=== PATIENT | male | born 1940 | race Caucasian/White ===

== ENCOUNTER 2020-06-17 13:09 | Emergency (ER) | payer MEDICARE, SELFPAY ==
[2020-06-17] VITALS (12 sets, daily range): BP systolic 110–132; BP diastolic 55–61; PULSE 60–75; RESP 15–23; TEMP 36.4; O2SAT 98–100
--- NOTE | 2020-06-17 13:19 | DI.RAD.S_ITS ---
PROCEDURE: XR CHEST 1V INDICATIONS: chest pain TECHNIQUE: One view of the chest was acquired. COMPARISON: [facility], , CHEST 2 VIEW, 12/12/2006, 14:00. [facility], , CHEST 2 VIEW, 05/30/2011, 10:30. [facility], CR, CHEST 2 VIEW, 05/08/2016, 14:27. FINDINGS: Surgical changes and devices: A pacer device is seen. Lungs and pleura: On this semiupright portable chest examination, no large pneumothorax or large pleural effusions are seen. No focal infiltrates are seen. Mediastinum: Mediastinal contours appear normal. Heart size is normal. Bones and chest wall: Age-appropriate bony degenerative changes are seen. No suspicious bony lesions. Overlying soft tissues appear unremarkable. IMPRESSION: Portable chest within normal limits for age. Postoperative and degenerative changes are seen. Dictated by: Dejan Bond M.D. on 06/17/2020 at 12:38 Approved by: Dejan Bond M.D. on 06/17/2020 at 12:38
--- NOTE | 2020-06-17 13:23 | ED_ITS ---
HPI - General Adult General Chief complaint: Dizziness Stated complaint: pacemaker installed yesterday,faint/pale Time Seen by Provider: 06/17/20 13:14 Source: patient Mode of arrival: Ambulatory Limitations: no limitations History of Present Illness HPI narrative: Patient is an 80-year-old male. Just discharged from the hospital today after having a pacemaker implanted yesterday. He states that after he was discharged she was feeling well. As they were driving home he felt like that he needed to have a bowel movement. He stated that he fell constipated. They stopped at a gas station. He states that he tried to have a bowel movement and was straining but could not have a bowel movement. He states he started feel lightheaded afterwards. He got back into his car and they continue to drive home and he continued to feel worse and worse. They decided to stop here at the hospital. Patient was unable to get out of his car in the parking lot upon arrival. Nursing staff saw him in the parking lot and stated that he was very weak. They did feel that he was pale in color. He was in no respiratory distress. EMS had to be called to help him out of his car. During my evaluation while patient is lying flat he states he was feeling much better. He denied any chest pain or shortness of breath. He stated that he no longer had the urge to have a bowel movement. Related Data Home Medications Medication Instructions Recorded Confirmed atorvastatin [Lipitor] 10 mg PO HS #30 tab 05/08/16 carvedilol [Coreg] 0 PO BID #0 05/08/16 Allergies Allergy/AdvReac Type Severity Reaction Status Date / Time No Known Drug Allergies Allergy Verified 06/17/20 13:26 Review of Systems Constitutional Constitutional: Denies fever(s), Denies headache(s) and Reports weakness Eyes Eyes: Denies change in vision ENT Ears, Nose, Mouth, and Throat: Denies vertigo, Reports dizziness and Denies headache(s) Cardiovascular Cardiovascular: Denies chest pain, Denies syncope, Denies rapid heart rate and Denies dyspnea Respiratory Respiratory: Denies cough and Denies dyspnea Gastrointestinal Gastrointestinal: Denies abdominal pain, Reports constipation, Denies nausea and Denies vomiting Genitourinary Genitourinary: Denies dysuria Genitourinary: Denies dysuria Musculoskeletal Musculoskeletal: Denies arthralgias and Denies myalgias Integumentary/Breasts Skin/Breast: Denies rash Neurologic Neurologic: Denies confusion, Denies vertigo, Reports dizziness, Denies syncope, Denies headache(s) and Reports weakness Psychiatric Psychiatric: Denies confusion Hematologic/Lymphatic Hematologic/Lymphatic: Denies easy bleeding and Denies easy bruising Patient History 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) Malignant neoplasm of prostate (01/26/03) Persistent atrial fibrillation (11/19/15) Social History marital status: lives independently: Yes Exam Initial Vital Signs Initial Vital Signs: Vital Signs Pulse Rate 61 06/17/20 13:14 Respiratory Rate 17 06/17/20 13:14 Pulse Oximetry 99 06/17/20 13:14 Const General: cooperative, healthy appearing, comfortable and well developed Limitations: mental status not altered HENMT Head: normal to inspection and normocephalic Resp Effort & Inspection: normal respiratory effort Auscultation: clear to auscultation bilaterally Cardio Rate: regular rate Rhythm: regular rhythm Skin Lesions: no lesions Rashes: no rashes Neuro General: patient alert, patient awake and patient oriented x3 Cognition: normal cognition Speech: speech normal Extrem General: normal to inspection and capillary refill normal Psych Appearance: grossly normal and well kempt Scores GCS Leyla coma scale eye opening: Spontaneous Leyla coma scale verbal response: Orientated [place] coma scale motor response: Obey commands [place] coma scale total score: 15 Course Orders Ordered: ED Orders 06/17/20 13:19 XR chest 1V Stat EKG-12 Lead Stat 06/17/20 13:25 Complete Blood Count AUTO DIFF Stat Comprehensive Metabolic Panel Stat Lipase Stat Partial Thromboplastin Time Stat Prothrombin Time INR Stat Troponin & CK Cardiac Panel Stat Discontinued Medications Sodium Biphosphate/Sodium Phosphate (Fleets Enema) 1 each WV NOW ONE Stop: 06/17/20 14:53 Last Admin: 06/17/20 15:19 Dose: 1 each Documented by: CLINTON Vital Signs Vital signs: Vital Signs - 8 hr 06/17/20 13:14 06/17/20 13:19 06/17/20 13:30 Temperature 97.5 F L Pulse Rate 61 60 65 Respiratory Rate 17 16 18 Blood Pressure 113/58 L Pulse Oximetry 99 98 99 06/17/20 13:39 06/17/20 14:00 06/17/20 14:30 Temperature Pulse Rate 61 60 60 Respiratory Rate 17 20 18 Blood Pressure 116/56 L 121/57 L Pulse Oximetry 99 100 100 06/17/20 14:31 Temperature Pulse Rate 60 Respiratory Rate 19 Blood Pressure 124/59 L Pulse Oximetry 100 Medical Decision Making Lab Data Lab results reviewed: Yes I reviewed the patient's lab results. Result diagrams: 06/17/20 13:25 06/17/20 13:25 Labs: Lab Results 06/17/20 06/17/20 06/17/20 Range/Units 13:25 13:25 13:25 WBC 7.9 (4.5-11.0) X10^3/uL RBC 4.57 (4.5-5.9) X10^6/uL Hgb 13.1 L (13.5-17.5) g/dL Hct 39.2 L (41-53) % MCV 85.7 (80-100) fL MCH 28.8 (26-34) PG MCHC 33.5 (30-36) % RDW 14.6 (11.6-14.8) % Plt Count 146 L (150-400) X10^3/uL Neut % (Auto) 48.7 L (50-75) % Lymph % (Auto) 39.6 (25-40) % [place] % (Auto) 8.3 (3-14) % Eos % (Auto) 2.4 (2-4) % Baso % (Auto) 1.0 (0-2) % Neut # (Auto) 3900 (4525-0956) /uL Lymph # (Auto) 3100 (1581-3785) /uL [place] # (Auto) 700 (0-900) /uL Eos # (Auto) 200 (0-450) /uL Baso # (Auto) 100 (0-100) /uL PT 18.4 H (10.1-12.7) SECONDS INR 1.6 H (0.9-1.3) APTT 39 H (26.4-36.2) SECONDS Sodium 136 L (137-145) mmol/L Potassium 4.1 (3.4-5.1) mmol/L Chloride 104 (98-107) mmol/L Carbon Dioxide 32 (22-32) mmol/L BUN 22 H (9-20) mg/dL Creatinine 1.37 H (0.66-1.25) mg/dL Estimated GFR 50.0 L (>60) mL/min BUN/Creatinine Ratio 16.1 (6-22) Glucose 100 (80-110) mg/dL Calcium 9.1 (8.4-10.2) mg/dL Total Bilirubin 0.7 (0.2-1.3) mg/dL AST 34 (17-59) IU/L ALT 22 (<50) IU/L Alkaline Phosphatase 54 (38-126) U/L Total Creatine Kinase 96 (55-170) U/L CK-MB (CK-2) TNP CK-MB (CK-2) Rel Index TNP Troponin I < 0.012 (0.01-0.034) ng/mL Total Protein 6.2 L (6.3-8.2) g/dL Albumin 3.7 (3.5-5.0) g/dL Globulin 2.5 (1.7-4.1) g/dL Albumin/Globulin Ratio 1.5 (1.0-2.8) Lipase 107 (23-300) U/L ECG Data Attestation: I personally reviewed and interpreted this ECG as follows: Prior ECG tracings: not available for review Interpretation: Ventricular paced Rate 62 MDM Narrative Medical decision making narrative: Patient's symptoms improved/resolved while being here. His pacemaker was interrogated and there were no events over the past 24 hours since it was implanted. Patient was able to walk to the bathroom although he stated that he could not have a bowel movement. He was given an enema and was able to have a bowel movement and afterwards states that he feels much better. He had no further nausea or lightheadedness or weakness. I feel patient could be safely discharged home. He was given return precautions. He expressed understanding and agreement. Discharge Plan Departure Patient Disposition: Home Clinical Impression: Constipation, Dizziness Instructions: DI for Dizziness-Nonvertigo Activity Restrictions/Additional Instructions: Continue all of your medications as directed and follow all of the postprocedure instructions given to by the anatomy professor. Be sure to increase your fluid intake. Keep all of your scheduled medical appointments. Return to the emergency department for any new or worsening symptoms Prescriptions: No Action carvedilol [Coreg] 12.5 MG tablet 0 PO BID Qty: 0 RF: 0 atorvastatin [Lipitor] 10 MG tablet 10 mg PO HS Qty: 30 RF: 0
[2020-06-17 13:31] LABS: Add Manual Diff / Slide Review NO; Basophils Absolute Auto 100 /uL (0-100); Eosinophils Absolute Auto 200 /uL (0-450); Eosinophils Percent Auto 2.4 % (2-4); Hematocrit 39.2 % (41-53); Hemoglobin 13.1 g/dL (13.5-17.5); Lymphocytes Absolute Auto 3100 /uL (1100-4500); Lymphocytes Percent Auto 39.6 % (25-40); Mean Corpuscular HGB Conc 33.5 % (30-36); Mean Corpuscular Hemoglobin 28.8 PG (26-34); Mean Corpuscular Volume 85.7 fL (80-100); Monocytes Absolute Auto 700 /uL (0-900); Monocytes Percent Auto 8.3 % (3-14); Neutrophils Absolute Auto 3900 /uL (1500-7000); Neutrophils Percent Auto 48.7 % (50-75); Platelet Count 146 X10^3/uL (150-400); Red Blood Cell Count 4.57 X10^6/uL (4.5-5.9); Red Cell Distribution Width 14.6 % (11.6-14.8); White Blood Cell Count 7.9 X10^3/uL (4.5-11.0)
[2020-06-17 13:38] LABS: INR 1.6 (0.9-1.3); Prothrombin Time 18.4 SECONDS (10.1-12.7)
[2020-06-17 13:41] LABS: PTT Partial Thromboplastin Tim 39 SECONDS (26.4-36.2)
[2020-06-17 13:43] LABS: Alanine Aminotransferase 22 IU/L (<50); Albumin 3.7 g/dL (3.5-5.0); Albumin Globulin Ratio 1.5 (1.0-2.8); Alkaline Phosphatase 54 U/L (38-126); Aspartate Aminotransferase 34 IU/L (17-59); BUN Creatinine Ratio 16.1 (6-22); Bilirubin Total 0.7 mg/dL (0.2-1.3); Blood Urea Nitrogen 22 mg/dL (9-20); Calcium 9.1 mg/dL (8.4-10.2); Carbon Dioxide 32 mmol/L (22-32); Chloride 104 mmol/L (98-107); Creatine Kinase 96 U/L (55-170); Globulin 2.5 g/dL (1.7-4.1); Glucose 100 mg/dL (80-110); HEMOLYSIS 15 (0-50); Lipase 107 U/L (23-300); Potassium 4.1 mmol/L (3.4-5.1); Sodium 136 mmol/L (137-145); Total Protein 6.2 g/dL (6.3-8.2)
[2020-06-17 13:55] LABS: Troponin I < 0.012 ng/mL (0.01-0.034)
--- NOTE | 2020-06-17 14:49 | PC.NURSE ---
interrogated pacemaker without difficulty.
[2020-06-17] MEDS: FLEETS ENEMA 1 EACH PR (15:19)
== END 2020-06-17 17:02 | disposition home or self-care (01) ==
PROVIDERS: Emergency Provider Emergency Medicine; Family Provider Family Medicine
DX: K59.00 Constipation, unspecified (principal); R42 Dizziness and giddiness; R07.9 Chest pain, unspecified; Z95.0 Presence of cardiac pacemaker
CPT/HCPCS: 36415; 71045; 80053; 82550; 83690; 84484; 85025; 85610; 85730; 93005; 93010; 99283; 99284

== ENCOUNTER → 2021-07-07 10:29 | Outpatient (CLI) | payer MEDICARE, SELFPAY ==
[2021-07-07 19:18] LABS: Add Manual Diff / Slide Review NO; Basophils Absolute Auto 0 /uL (0-100); Basophils Percent Auto 0.3 % (0-2); Eosinophils Absolute Auto 100 /uL (0-450); Hematocrit 37.1 % (41-53); Hemoglobin 12.5 g/dL (13.5-17.5); Lymphocytes Absolute Auto 1400 /uL (1100-4500); Mean Corpuscular HGB Conc 33.8 % (30-36); Mean Corpuscular Volume 85.6 fL (80-100); Monocytes Absolute Auto 500 /uL (0-900); Monocytes Percent Auto 5.3 % (3-14); Neutrophils Absolute Auto 7700 /uL (1500-7000); Neutrophils Percent Auto 79.4 % (50-75); Platelet Count 188 X10^3/uL (150-400); Red Blood Cell Count 4.33 X10^6/uL (4.5-5.9); Red Cell Distribution Width 14.4 % (11.6-14.8); White Blood Cell Count 9.7 X10^3/uL (4.5-11.0)
[2021-07-07 19:43] LABS: Alanine Aminotransferase 12 IU/L (<50); Albumin 3.5 g/dL (3.5-5.0); Albumin Globulin Ratio 1.5 (1.0-2.8); Alkaline Phosphatase 54 U/L (38-126); Aspartate Aminotransferase 19 IU/L (17-59); BUN Creatinine Ratio 21.3 (6-22); Bilirubin Total 0.6 mg/dL (0.2-1.3); Blood Urea Nitrogen 29 mg/dL (9-20); Carbon Dioxide 31 mmol/L (22-32); Chloride 108 mmol/L (98-107); Cholesterol 199 mg/dL (140-199); Estimated Glomerular Filt Rate 50.3 mL/min (>60); Globulin 2.3 g/dL (1.7-4.1); Glucose 81 mg/dL (80-110); HDL Cholesterol 41 mg/dL (40-60); HEMOLYSIS < 15 (0-50); LDL Cholesterol Calculated 143 mg/dL (<100); Potassium 4.3 mmol/L (3.4-5.1); Sodium 140 mmol/L (137-145); Total Protein 5.8 g/dL (6.3-8.2); Triglycerides 75 mg/dL (35-150)
[2021-07-07 19:55] LABS: Free T4, Direct Thyroxine 1.84 ng/dL (0.78-2.19)
[2021-07-07 20:14] LABS: Thyroid Stimulating Hormone < 0.015 uIU/mL (0.47-4.68)
== END ==
PROVIDERS: Family Provider Family Medicine; PCP Family Medicine; Visit Provider Family Medicine
DX: I10 Essential (primary) hypertension (principal); N18.2 Chronic kidney disease, stage 2 (mild); E03.9 Hypothyroidism, unspecified; E78.00 Pure hypercholesterolemia, unspecified
CPT/HCPCS: 80053; 80061; 84439; 84443; 85025

== ENCOUNTER 2021-12-25 12:27 | Inpatient (IN) | payer MEDICARE, SELFPAY ==
[2021-12-25] VITALS (8 sets, daily range): BP systolic 112–184; BP diastolic 55–80; PULSE 64–93; RESP 18–26; TEMP 36.8–39.3; O2SAT 91–100; BMI 25.2
--- NOTE | 2021-12-25 12:35 | ED_ITS ---
HPI - General Adult General Chief complaint: Weakness Stated complaint: weakness Time Seen by Provider: 12/25/21 12:29 Source: patient Mode of arrival: EMS Limitations: no limitations History of Present Illness HPI narrative: 81-year-old male who is brought by air ambulance from [facility]. Patient states that this morning he got up to try to use the restroom. He was sitting on the toilet. He states he fell off the toilet. No loss of consciousness. He states he was just too weak to get up. It took him an hour to get back to his bed. He reports no injuries from the event. EMS was called. Upon their arrival they found him to be hypotensive in the lying position and also hypoglycemic with a blood sugar in the 60s. He was given sugar and repeat blood sugar shows 99. He is also having chills/rigors. Upon arrival patient states that he feels cold but otherwise feels okay. No chest pain. No shortness of breath. No headache. No vision changes. No tingling in his extremities. No abdominal pain. No nausea vomiting. No urinary symptoms. No rashes. Related Data Home Medications Medication Instructions Recorded Confirmed atorvastatin 10 mg tablet (Lipitor) 10 mg PO HS #30 tab 05/08/16 07/01/21 hydrocortisone 20 mg tablet 20 mg PO DAILY 11/23/20 07/01/21 lisinopril 10 mg tablet 10 mg PO BID 11/23/20 07/01/21 warfarin 5 mg PO DAILY 11/23/20 01/10/21 metoprolol PO 01/10/21 07/01/21 Previous Rx's Medication Instructions Recorded levothyroxine 112 mcg tablet 112 mcg PO DAILY #90 tab 11/14/21 Allergies Allergy/AdvReac Type Severity Reaction Status Date / Time No Known Drug Allergies Allergy Verified 12/25/21 12:33 Review of Systems Review of Systems ROS Unobtainable: All systems reviewed & are unremarkable except as noted in HPI and below 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 Cerumen impaction Chicken pox Chronic kidney disease Complete AV block COPD (chronic obstructive pulmonary disease) H/O benign neoplasm of pituitary gland HTN (hypertension) Hyperlipidemia Hypertrophic cardiomyopathy Hypopituitarism 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/15) Low testosterone Malignant neoplasm of prostate (01/26/03) Measles Persistent atrial fibrillation (11/19/15) Syncope Surgical History Pacemaker (~2020) Family History Father Hypertension Mother Cancer Social History marital status: lives independently: Yes Smoking Status: Former smoker (Quit 40 years ago) Smoking Status: Former smoker (Quit 40 years ago) Substance Use Type: does not use Exam Initial Vital Signs Initial Vital Signs: Vital Signs Temperature 99.2 F 12/25/21 12:33 Pulse Rate 64 12/25/21 12:33 Respiratory Rate 18 12/25/21 12:33 Blood Pressure 146/67 H 12/25/21 12:33 Pulse Oximetry 100 12/25/21 12:33 Const General: cooperative, comfortable and well developed HENMT Head: normal to inspection and normocephalic Chest Chest: No tenderness Resp Effort & Inspection: normal respiratory effort Auscultation: clear to auscultation bilaterally Cardio Rate: regular rate Rhythm: regular rhythm GI Inspection: normal to inspection Palpation: soft, No firm, No guarding and No tender Skin General: no rashes or lesions noted Lesions: no lesions Neuro General: patient alert, patient awake and moves all extremities Speech: speech normal Extrem General: capillary refill normal and No edema Psych Appearance: grossly normal and well kempt Course Orders Ordered: ED Orders 12/25/21 12:33 EKG-12 Lead Stat 12/25/21 12:44 COVID19 -Nasal RAPID/Pre-Proc Stat 12/25/21 12:50 Complete Blood Count AUTO DIFF Stat Comprehensive Metabolic Panel Stat Ethanol (ETOH) Stat Lactate (Lactic Acid) Stat Lipase Stat Magnesium Stat Partial Thromboplastin Time Stat Procalcitonin Stat Prothrombin Time INR Stat Thyroid Stimulating Hormone Stat Troponin & CK Cardiac Panel Stat 12/25/21 12:55 NT-proBNP (BNP-Adult 18+) Stat 12/25/21 13:03 XR chest 1V Stat Sodium Chloride (Normal Saline 0.9%) 1,000 mls @ 125 mls/hr IV CONT PHIL Last Admin: 12/25/21 13:46 Dose: Not Given Documented by: BEBO Vital Signs Vital signs: Vital Signs - 8 hr 12/25/21 12:33 Temperature 99.2 F Pulse Rate 64 Respiratory Rate 18 Blood Pressure 146/67 H Pulse Oximetry 100 Medical Decision Making Lab Data Lab results reviewed: Yes I reviewed the patient's lab results. Result diagrams: 12/25/21 12:50 12/25/21 12:50 Labs: Lab Results 12/25/21 12/25/21 12/25/21 Range/Units 12:44 12:50 12:50 WBC 6.6 (4.5-11.0) X10^3/uL RBC 4.21 L (4.5-5.9) X10^6/uL Hgb 12.5 L (13.5-17.5) g/dL Hct 36.2 L (41-53) % MCV 86.0 (80-100) fL MCH 29.7 (26-34) PG MCHC 34.5 (30-36) % RDW 14.1 (11.6-14.8) % Plt Count 122 L (150-400) X10^3/uL Neut % (Auto) 75.6 H (50-75) % Lymph % (Auto) 15.0 L (25-40) % [place] % (Auto) 6.9 (3-14) % Eos % (Auto) 1.3 L (2-4) % Baso % (Auto) 1.2 (0-2) % Neut # (Auto) 5000 (3574-3521) /uL Lymph # (Auto) 1000 L (5721-6618) /uL [place] # (Auto) 500 (0-900) /uL Eos # (Auto) 100 (0-450) /uL Baso # (Auto) 100 (0-100) /uL PT (10.1-12.7) SECONDS INR (0.9-1.3) APTT (26.4-36.2) SECONDS Sodium 139 (137-145) mmol/L Potassium 4.1 (3.4-5.1) mmol/L Chloride 103 (98-107) mmol/L Carbon Dioxide 29 (22-32) mmol/L BUN 24 H (9-20) mg/dL Creatinine 1.35 H (0.66-1.25) mg/dL Estimated GFR 53 L (>60) mL/min BUN/Creatinine Ratio 17.8 (6-22) Glucose 108 (80-110) mg/dL Lactate (0.7-2.1) mmol/L Calcium 8.3 L (8.4-10.2) mg/dL Magnesium (1.6-2.3) mg/dL Total Bilirubin 0.6 (0.2-1.3) mg/dL AST 22 (17-59) IU/L ALT 12 (<50) IU/L Alkaline Phosphatase 50 (38-126) U/L Total Creatine Kinase (55-170) U/L CK-MB (CK-2) CK-MB (CK-2) Rel Index Troponin I (0.01-0.034) ng/mL NT-Pro-B Natriuret Pep (<450) pg/mL Total Protein 6.2 L (6.3-8.2) g/dL Albumin 3.6 (3.5-5.0) g/dL Globulin 2.6 (1.7-4.1) g/dL Albumin/Globulin Ratio 1.4 (1.0-2.8) Lipase (23-300) U/L Procalcitonin (<0.5) ng/mL TSH (0.47-4.68) uIU/mL Ethyl Alcohol ( - 10) mg/dL SARS-CoV-2 (PCR) Positive H (Negative) 12/25/21 12/25/21 12/25/21 Range/Units 12:50 12:50 12:50 WBC (4.5-11.0) X10^3/uL RBC (4.5-5.9) X10^6/uL Hgb (13.5-17.5) g/dL Hct (41-53) % MCV (80-100) fL MCH (26-34) PG MCHC (30-36) % RDW (11.6-14.8) % Plt Count (150-400) X10^3/uL Neut % (Auto) (50-75) % Lymph % (Auto) (25-40) % [place] % (Auto) (3-14) % Eos % (Auto) (2-4) % Baso % (Auto) (0-2) % Neut # (Auto) (1945-8378) /uL Lymph # (Auto) (1585-9587) /uL [place] # (Auto) (0-900) /uL Eos # (Auto) (0-450) /uL Baso # (Auto) (0-100) /uL PT 17.4 H (10.1-12.7) SECONDS INR 1.5 H (0.9-1.3) APTT 35 (26.4-36.2) SECONDS Sodium (137-145) mmol/L Potassium (3.4-5.1) mmol/L Chloride (98-107) mmol/L Carbon Dioxide (22-32) mmol/L BUN (9-20) mg/dL Creatinine (0.66-1.25) mg/dL Estimated GFR (>60) mL/min BUN/Creatinine Ratio (6-22) Glucose (80-110) mg/dL Lactate 1.3 (0.7-2.1) mmol/L Calcium (8.4-10.2) mg/dL Magnesium 1.9 (1.6-2.3) mg/dL Total Bilirubin (0.2-1.3) mg/dL AST (17-59) IU/L ALT (<50) IU/L Alkaline Phosphatase (38-126) U/L Total Creatine Kinase 31 L (55-170) U/L CK-MB (CK-2) TNP CK-MB (CK-2) Rel Index TNP Troponin I < 0.012 (0.01-0.034) ng/mL NT-Pro-B Natriuret Pep (<450) pg/mL Total Protein (6.3-8.2) g/dL Albumin (3.5-5.0) g/dL Globulin (1.7-4.1) g/dL Albumin/Globulin Ratio (1.0-2.8) Lipase 135 (23-300) U/L Procalcitonin 0.11 (<0.5) ng/mL TSH (0.47-4.68) uIU/mL Ethyl Alcohol < 10 ( - 10) mg/dL SARS-CoV-2 (PCR) (Negative) 12/25/21 12/25/21 Range/Units 12:50 12:55 WBC (4.5-11.0) X10^3/uL RBC (4.5-5.9) X10^6/uL Hgb (13.5-17.5) g/dL Hct (41-53) % MCV (80-100) fL MCH (26-34) PG MCHC (30-36) % RDW (11.6-14.8) % Plt Count (150-400) X10^3/uL Neut % (Auto) (50-75) % Lymph % (Auto) (25-40) % [place] % (Auto) (3-14) % Eos % (Auto) (2-4) % Baso % (Auto) (0-2) % Neut # (Auto) (8259-0907) /uL Lymph # (Auto) (9525-2373) /uL [place] # (Auto) (0-900) /uL Eos # (Auto) (0-450) /uL Baso # (Auto) (0-100) /uL PT (10.1-12.7) SECONDS INR (0.9-1.3) APTT (26.4-36.2) SECONDS Sodium (137-145) mmol/L Potassium (3.4-5.1) mmol/L Chloride (98-107) mmol/L Carbon Dioxide (22-32) mmol/L BUN (9-20) mg/dL Creatinine (0.66-1.25) mg/dL Estimated GFR (>60) mL/min BUN/Creatinine Ratio (6-22) Glucose (80-110) mg/dL Lactate (0.7-2.1) mmol/L Calcium (8.4-10.2) mg/dL Magnesium (1.6-2.3) mg/dL Total Bilirubin (0.2-1.3) mg/dL AST (17-59) IU/L ALT (<50) IU/L Alkaline Phosphatase (38-126) U/L Total Creatine Kinase (55-170) U/L CK-MB (CK-2) CK-MB (CK-2) Rel Index Troponin I (0.01-0.034) ng/mL NT-Pro-B Natriuret Pep 2100 H (<450) pg/mL Total Protein (6.3-8.2) g/dL Albumin (3.5-5.0) g/dL Globulin (1.7-4.1) g/dL Albumin/Globulin Ratio (1.0-2.8) Lipase (23-300) U/L Procalcitonin (<0.5) ng/mL TSH 0.025 L (0.47-4.68) uIU/mL Ethyl Alcohol ( - 10) mg/dL SARS-CoV-2 (PCR) (Negative) Point of Care Testing Glucose POC 108 Point of care testing: Point of Care Testing Glucose POC 108 Imaging Data Chest x-ray: Radiologist's Impression: [address] [address] XRay Report Signed Patient: Satish Deal MR#: [id number] : 1940 Acct:[id number] Age/Sex: 81 / M Date of Service: 12/25/21 Loc: ED Accession Number: [id number] ?? Procedure: XR chest 1V Ordering Provider: Jorge Patricio D.O. PROCEDURE:? XR CHEST 1V ? INDICATIONS:? SOB ? TECHNIQUE:? One view of the chest was acquired.? ? COMPARISON:? [facility], CR, CHEST 2 VIEW, 05/08/2016, 14:27.? [facility], CR, XR CHEST 1V, 06/17/2020, 13:26. ? FINDINGS:? ? Surgical changes and devices:? Left chest wall cardiac device unchanged in appearance.? Overlying EKG wires. ? Lungs and pleura:? Lungs are clear.? No pleural effusions or pneumothorax.? ? Mediastinum:? Mediastinal contours appear normal.? Heart size is normal.? ? Bones and chest wall:? No suspicious bony lesions.? Overlying soft tissues appear unremarkable.? ? IMPRESSION:? ? No evidence of an acute cardiopulmonary abnormality. ? ? Dictated by: Ruddy Sabillon D.O. on 12/25/2021 at 12:22 ? ? Approved by: Ruddy Sabillon D.O. on 12/25/2021 at 12:23 ECG Data Attestation: I personally reviewed and interpreted this ECG as follows: Prior ECG tracings: available for review Interpretation: Atrially paced Rate of 63 Left axis deviation Nonspecific ST T wave changes MDM Narrative Medical decision making narrative: Patient's labs are reassuring along with his chest x-ray. No leukocytosis. COVID test positive. Patient not hypoxic when he is lying in bed however nursing staff stood the patient up to ambulate him. He became tachypneic. Hy poxic to the high 80s. Very weak. Could barely stand on his own. He was placed back in bed. His oxygen saturations improved. He is not requiring oxygen with lying in bed. Given his COVID status and his hypoxia with ambulation patient does require admission to the hospital for further evaluatio n. Discussed the case with Dr. Payne with Internal Medicine who will admit for further evaluation and treatment. Discharge Plan Departure Patient Disposition: Admitted as Observation Clinical Impression: COVID-19, Hypoxia, Weakness
--- NOTE | 2021-12-25 13:03 | DI.RAD.S_ITS ---
PROCEDURE: XR CHEST 1V INDICATIONS: SOB TECHNIQUE: One view of the chest was acquired. COMPARISON: [facility], [facility], CHEST 2 VIEW, 05/08/2016, 14:27. [facility], [place], XR CHEST 1V, 06/17/2020, 13:26. FINDINGS: Surgical changes and devices: Left chest wall cardiac device unchanged in appearance. Overlying EKG wires. Lungs and pleura: Lungs are clear. No pleural effusions or pneumothorax. Mediastinum: Mediastinal contours appear normal. Heart size is normal. Bones and chest wall: No suspicious bony lesions. Overlying soft tissues appear unremarkable. IMPRESSION: No evidence of an acute cardiopulmonary abnormality. Dictated by: Ruddy Sabillon D.O. on 12/25/2021 at 12:22 Approved by: Ruddy Sabillon D.O. on 12/25/2021 at 12:23
[2021-12-25 13:10] LABS: INR 1.5 (0.9-1.3); Prothrombin Time 17.4 SECONDS (10.1-12.7)
[2021-12-25 13:11] LABS: Add Manual Diff / Slide Review NO; Basophils Absolute Auto 100 /uL (0-100); Basophils Percent Auto 1.2 % (0-2); Eosinophils Absolute Auto 100 /uL (0-450); Eosinophils Percent Auto 1.3 % (2-4); Hematocrit 36.2 % (41-53); Hemoglobin 12.5 g/dL (13.5-17.5); Lymphocytes Absolute Auto 1000 /uL (1100-4500); Mean Corpuscular HGB Conc 34.5 % (30-36); Mean Corpuscular Hemoglobin 29.7 PG (26-34); Monocytes Absolute Auto 500 /uL (0-900); Monocytes Percent Auto 6.9 % (3-14); Neutrophils Absolute Auto 5000 /uL (1500-7000); Neutrophils Percent Auto 75.6 % (50-75); Platelet Count 122 X10^3/uL (150-400); Red Blood Cell Count 4.21 X10^6/uL (4.5-5.9); Red Cell Distribution Width 14.1 % (11.6-14.8); White Blood Cell Count 6.6 X10^3/uL (4.5-11.0)
[2021-12-25 13:13] LABS: PTT Partial Thromboplastin Tim 35 SECONDS (26.4-36.2)
[2021-12-25 13:15] LABS: Lactate (Lactic Acid) 1.3 mmol/L (0.7-2.1)
[2021-12-25 13:17] LABS: Alanine Aminotransferase 12 IU/L (<50); Albumin 3.6 g/dL (3.5-5.0); Albumin Globulin Ratio 1.4 (1.0-2.8); Alkaline Phosphatase 50 U/L (38-126); Aspartate Aminotransferase 22 IU/L (17-59); BUN Creatinine Ratio 17.8 (6-22); Bilirubin Total 0.6 mg/dL (0.2-1.3); Blood Urea Nitrogen 24 mg/dL (9-20); Calcium 8.3 mg/dL (8.4-10.2); Carbon Dioxide 29 mmol/L (22-32); Chloride 103 mmol/L (98-107); Creatine Kinase 31 U/L (55-170); Estimated Glomerular Filt Rate 53 mL/min (>60); Ethanol (ETOH) < 10 mg/dL; Globulin 2.6 g/dL (1.7-4.1); Glucose 108 mg/dL (80-110); HEMOLYSIS < 15 (0-50); Lipase 135 U/L (23-300); Magnesium 1.9 mg/dL (1.6-2.3); Potassium 4.1 mmol/L (3.4-5.1); Sodium 139 mmol/L (137-145); Total Protein 6.2 g/dL (6.3-8.2)
[2021-12-25 13:22] LABS: COVID19 -Nasal RAPID POSITIVE (Negative)
[2021-12-25 13:26] LABS: NT-proBNP (BNP-Adult 18+) 2100 pg/mL (<450)
[2021-12-25 13:29] LABS: Troponin I < 0.012 ng/mL (0.01-0.034)
[2021-12-25 13:34] LABS: Procalcitonin 0.11 ng/mL (<0.5)
[2021-12-25 14:02] LABS: Thyroid Stimulating Hormone 0.025 uIU/mL (0.47-4.68)
--- NOTE | 2021-12-25 14:21 | PC.NURSE ---
Attempted to do orthostatics on patient, was not able to stay standing for longer than 30 seconds, became hypoxic at 87% and tachypneic with respirations at 36 and stated that he'd become weak and short of breath. Notified provider.
[2021-12-25 16:13] LABS: Free T4, Direct Thyroxine 1.47 ng/dL (0.78-2.19)
--- NOTE | 2021-12-25 16:13 | PM.HP.1 ---
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 At the time I see patient he is having active rigors and has hard time giving me full history. He apparently became acutely weak while sitting on the toilet and fell to the floor. He denies passing out. He was too weak to get up but eventually got back to his bed. Upon EMS arrival they found him to be hypotensive in the lying position and also hypoglycemic with blood sugar in the 60s. He was given sugar and repeat blood sugar was 99. On ER arrival his blood pressure was 146/67, pulse 64, respirations 18 with O2 sat 100% on room air. However when they stood him up he became lightheaded with O2 sat dropping to 87% room air. Noted similar drop in O2 sat when he was being situated in bed up on the hospital floor. Subsequently spiked temp to 102.3 with active rigors once arrived to the floor. His COVID PCR was positive. BNP 2100. Creatinine 1.35 at baseline. Chest x-ray did not show infiltrate. EKG showed paced rhythm. Patient has hypopituitarism and on steroid and thyroid replacement. He appears to be on Xarelto for AFib anticoagulation. Patient is fully immunized including 2 boosters. 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 Cerumen impaction Chicken pox Chronic kidney disease Complete AV block COPD (chronic obstructive pulmonary disease) H/O benign neoplasm of pituitary gland HTN (hypertension) Hyperlipidemia Hypertrophic cardiomyopathy Hypopituitarism Hypothyroidism retirement current use of anticoagulant therapy (11/19/15) Low testosterone Malignant neoplasm of prostate (01/26/03) Measles Persistent atrial fibrillation (11/19/15) Syncope Surgical History Pacemaker (~2020) Family & Social History Family History Father Hypertension Mother Cancer Social History: lives independently Yes Safety & Behavioral: Feels Safe in Current Yes Environment Been Physically Hurt or No Threatened By a Person Tobacco & Substance use: Smoking Status Former smoker Substance Use Type does not use Meds Home Medications and Allergies Home Medications Medication Instructions Recorded Confirmed Type hydrocortisone 20 mg tablet 20 mg PO DAILY 11/23/20 07/01/21 History lisinopril 10 mg tablet 10 mg PO DAILY 11/23/20 07/01/21 History levothyroxine 112 mcg tablet 112 mcg PO DAILY #90 tab 11/14/21 Rx metoprolol succinate 25 mg 25 mg PO DAILY 12/25/21 History tablet,extended release 24 hr rivaroxaban 20 mg tablet (Xarelto) 20 mg PO DAILY 12/25/21 History Allergies Allergy/AdvReac Type Severity Reaction Status Date / Time No Known Drug Allergies Allergy Verified 12/25/21 12:33 Review of Systems Review of Systems Narrative: Complete ROS otherwise negative though limited by patient unable to provide full history. Exam Vital Signs (past 8 hours): - 12/25/21 12:33 12/25/21 16:03 Temperature 99.2 F 102.3 F H Pulse Rate 64 93 H Respiratory Rate 18 20 Blood Pressure 146/67 H 184/80 H Pulse Oximetry 100 91 Oxygen Delivery Method Room Air Oxygen Flow Rate 0 Narrative Exam Narrative: General: Well-developed well-nourished male who is acutely distressed having rigors HEENT: Nontraumatic, pupils equal Neck: No lymphadenopathy Lungs: Bilateral coarse breath sounds, no wheeze or crackles Heart: Regular paced rhythm without murmur Abdomen: Soft, no HSM Extremities: Warm and nonedematous Neurological: Oriented, weak but no localizing weakness Objective Labs Result Diagrams: 12/25/21 12:50 12/25/21 12:50 Labs: Laboratory Results - last 24 hr 12/25/21 12/25/21 12/25/21 12:44 12:50 12:50 WBC 6.6 RBC 4.21 L Hgb 12.5 L Hct 36.2 L MCV 86.0 MCH 29.7 MCHC 34.5 RDW 14.1 Plt Count 122 L Neut % (Auto) 75.6 H Lymph % (Auto) 15.0 L [place] % (Auto) 6.9 Eos % (Auto) 1.3 L Baso % (Auto) 1.2 Neut # (Auto) 5000 Lymph # (Auto) 1000 L [place] # (Auto) 500 Eos # (Auto) 100 Baso # (Auto) 100 PT INR APTT Sodium 139 Potassium 4.1 Chloride 103 Carbon Dioxide 29 BUN 24 H Creatinine 1.35 H Estimated GFR 53 L BUN/Creatinine Ratio 17.8 Glucose 108 Lactate Calcium 8.3 L Magnesium Total Bilirubin 0.6 AST 22 ALT 12 Alkaline Phosphatase 50 Total Creatine Kinase CK-MB (CK-2) CK-MB (CK-2) Rel Index Troponin I NT-Pro-B Natriuret Pep Total Protein 6.2 L Albumin 3.6 Globulin 2.6 Albumin/Globulin Ratio 1.4 Lipase Procalcitonin TSH Ethyl Alcohol SARS-CoV-2 (PCR) Positive H 12/25/21 12/25/21 12/25/21 12:50 12:50 12:50 WBC RBC Hgb Hct MCV MCH MCHC RDW Plt Count Neut % (Auto) Lymph % (Auto) [place] % (Auto) Eos % (Auto) Baso % (Auto) Neut # (Auto) Lymph # (Auto) [place] # (Auto) Eos # (Auto) Baso # (Auto) PT 17.4 H INR 1.5 H APTT 35 Sodium Potassium Chloride Carbon Dioxide BUN Creatinine Estimated GFR BUN/Creatinine Ratio Glucose Lactate 1.3 Calcium Magnesium 1.9 Total Bilirubin AST ALT Alkaline Phosphatase Total Creatine Kinase 31 L CK-MB (CK-2) TNP CK-MB (CK-2) Rel Index TNP Troponin I < 0.012 NT-Pro-B Natriuret Pep Total Protein Albumin Globulin Albumin/Globulin Ratio Lipase 135 Procalcitonin 0.11 TSH Ethyl Alcohol < 10 SARS-CoV-2 (PCR) 12/25/21 12/25/21 12:50 12:55 WBC RBC Hgb Hct MCV MCH MCHC RDW Plt Count Neut % (Auto) Lymph % (Auto) [place] % (Auto) Eos % (Auto) Baso % (Auto) Neut # (Auto) Lymph # (Auto) [place] # (Auto) Eos # (Auto) Baso # (Auto) PT INR APTT Sodium Potassium Chloride Carbon Dioxide BUN Creatinine Estimated GFR BUN/Creatinine Ratio Glucose Lactate Calcium Magnesium Total Bilirubin AST ALT Alkaline Phosphatase Total Creatine Kinase CK-MB (CK-2) CK-MB (CK-2) Rel Index Troponin I NT-Pro-B Natriuret Pep 2100 H Total Protein Albumin Globulin Albumin/Globulin Ratio Lipase Procalcitonin TSH 0.025 L Ethyl Alcohol SARS-CoV-2 (PCR) Assessment & Plan Assessment & Plan narrative: 1. Acute COVID-19 infection -presents with weakness, fever and rigors and O2 desaturations with exertion only, hypotensive prior to ER arrival, no infiltrate on chest x-ray -at this time need supportive therapy with IV fluids, stress dose steroids, but will start remdesivir/high-dose steroids if respiratory status deteriorates -continue NS 125 cc/hour -hydrocortisone 100 mg IV x1 then 50 mg IV q.6 hours -Tylenol as needed -check influenza PCR 2. Acute hypoxic respiratory failure -O2 sat 87% at home and dropped below 88% with minimal activity in hospital -provide supplemental O2 if hypoxic at rest 3. 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 Hypopituitarism -stress dose steroids as above -continue home dose of hydrocortisone 20 mg p.o. daily, levothyroxine 112 mcg daily -TSH suppressed but not reliable since patient has central hypothyroidism, his free T4 is normal indicating adequate replacement 5. Persistent atrial fibrillation -he is in paced rhythm -continue metoprolol ER 25 mg daily -continue Xarelto 20 mg daily although may need to adjust if renal function worsens as EGFR is right around 50 -telemetry 6. Hypertrophic cardiomyopathy history -BNP elevated but there is no evidence of acute CHF -continue lisinopril 10 mg q.d. and metoprolol succinate 25 mg q.d. as blood pressure allows 7. Chronic kidney disease -appears at baseline renal function -maintain IV fluid support until confirm patient taking adequate fluids by mouth DVT prophylaxis: On oral anticoagulant Code status: Full code Time Spent With Patient Critical Care time: I spent a total of [] minutes of critical care time on this patient's care today; this time is exclusive of procedural time.
[2021-12-25] MEDS: SODIUM CHLORIDE 0.9% 1,000 ML 125 ML IV (16:40)
[2021-12-25] MEDS: HYDROCORTISONE 100 MG/2 ML VIAL IV (16:40)
[2021-12-25] MEDS: ACETAMINOPHEN 325 MG TABLET 650 MG PO (16:41)
[2021-12-25] MEDS: DEXTROSE 5%-0.9% NS 1,000 ML 125 ML IV (17:30)
[2021-12-25 17:43] LABS: Influenza A - CEPHEID Flu A NEGATIVE (NEGATIVE); Influenza B - CEPHEID Flu B NEGATIVE (NEGATIVE)
--- NOTE | 2021-12-25 18:40 | PC.NURSE ---
Admit Note Pt arrived to room 230 at 1540, transferred to bed via slider board. Oriented to self and place, intermittently answers questions and follows commands. SpO2 94-97% on RA while at rest, desats to mid-80s with activity. RR in the 30s. Lungs coarse to upper airway, near-continual moist productive cough, sputum not visualized due to pt's inability to expectorate (swallows sputum). Temp 102.3 on arrival, Tylenol given and recheck 102.7 axillary. CBG 76, pt declined to drink or eat, stating no, explained rationale and pt did not respond. MD updated and IV fluids changed to include a sugar source. Incontinent of urine, brief placed. Arrived with glasses, necklace, 2 bracelets, shirt, pants, shoes. Updated , Jana, via phone and med list confirmed as pt could not confirm his meds. Also confirmed pt's wallet was at his home. Call light placed within reach, instructed on its use. Bed alarm is on.
[2021-12-25] MEDS: ATORVASTATIN 20 MG TABLET 10 MG PO (20:10)
--- NOTE | 2021-12-25 21:02 | PC.NURSE ---
Addendum entered by Vikash Ho R.N. 12/26/21 06:23: Patient had uneventful night, vital signs are stable and within acceptable limits, denies any pain/discomfort, no distress, maintained at room air with O2 sat >95%, changed brief twice, provided pericare. Patient attempted to defecate but unsuccessful. Safety precautions maintained. Original Note: Shift Note Received patient asleep, arousable, able to identify self and date of , denies any pain/discomfort this time, no signs of distress, at room air with O2 sat at 95%, with IV access on both upper extremities, ongoing fluids IV D5NS at 125mls/hr. Patient obeys to simple commands but forgetful. Lungs are coarse anteriorly and diminished breath sounds on bilateral bases. Soft and non tender abdomen, good bowel tones noted. Patient was incontinent, brief on, but urinal provided at the bedside. Safety precautions maintained. Call william within reach.
[2021-12-25] MEDS: HYDROCORTISONE 100 MG/2 ML VIAL 50 MG IV (23:31)
[2021-12-26] VITALS (9 sets, daily range): BP systolic 114–161; BP diastolic 55–72; PULSE 60–64; RESP 16–23; TEMP 36.2–37.3; O2SAT 97–100
[2021-12-26] MEDS: DEXTROSE 5%-0.9% NS 1,000 ML 125 ML IV (01:18)
[2021-12-26 05:34] LABS: Add Manual Diff / Slide Review NO; Basophils Absolute Auto 0 /uL (0-100); Basophils Percent Auto 0.1 % (0-2); Eosinophils Absolute Auto 0 /uL (0-450); Hematocrit 35.3 % (41-53); Hemoglobin 12.3 g/dL (13.5-17.5); Lymphocytes Absolute Auto 500 /uL (1100-4500); Lymphocytes Percent Auto 5.2 % (25-40); Mean Corpuscular HGB Conc 34.8 % (30-36); Mean Corpuscular Hemoglobin 29.5 PG (26-34); Mean Corpuscular Volume 84.8 fL (80-100); Monocytes Absolute Auto 300 /uL (0-900); Monocytes Percent Auto 2.9 % (3-14); Neutrophils Absolute Auto 9000 /uL (1500-7000); Neutrophils Percent Auto 91.8 % (50-75); Platelet Count 115 X10^3/uL (150-400); Red Blood Cell Count 4.16 X10^6/uL (4.5-5.9); Red Cell Distribution Width 14.4 % (11.6-14.8); White Blood Cell Count 9.8 X10^3/uL (4.5-11.0)
[2021-12-26 05:38] LABS: Alanine Aminotransferase 12 IU/L (<50); Albumin Globulin Ratio 1.3 (1.0-2.8); Alkaline Phosphatase 41 U/L (38-126); Aspartate Aminotransferase 21 IU/L (17-59); Bilirubin Total 0.4 mg/dL (0.2-1.3); Blood Urea Nitrogen 22 mg/dL (9-20); Calcium 7.9 mg/dL (8.4-10.2); Carbon Dioxide 27 mmol/L (22-32); Chloride 105 mmol/L (98-107); Estimated Glomerular Filt Rate > 60 mL/min (>60); Globulin 2.4 g/dL (1.7-4.1); Glucose 203 mg/dL (80-110); HEMOLYSIS < 15 (0-50); Potassium 4.6 mmol/L (3.4-5.1); Sodium 135 mmol/L (137-145); Total Protein 5.4 g/dL (6.3-8.2)
[2021-12-26] MEDS: HYDROCORTISONE 100 MG/2 ML VIAL 50 MG IV ×3 (05:38→20:38)
[2021-12-26] MEDS: LEVOTHYROXINE 112 MCG TABLET PO (06:10)
--- NOTE | 2021-12-26 09:30 | PM.PN.1 ---
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 Patient still with upper airway secretions pooling in his throat with weak cough. Has not mobilized out of bed yet this morning. Was hypoglycemic last night and glucose up to 200 this a.m.. Has been incontinent of urine. Exam Vital Signs (past 8 hours): - 12/26/21 04:00 Temperature 97.2 F L Pulse Rate 60 Respiratory Rate 22 Blood Pressure 114/55 L Pulse Oximetry 99 Oxygen Delivery Method Room Air Oxygen Flow Rate 0 Narrative Exam Narrative: General: Alert with weak muffled voice due to secretions Lungs: Clear Heart: Regular Extremities: No edema Neuro: Appears normally oriented Objective Labs Result Diagrams: 12/26/21 04:50 12/26/21 04:50 Labs: Laboratory Results - last 24 hr 12/25/21 12/25/21 12/25/21 12:44 12:50 12:50 WBC 6.6 RBC 4.21 L Hgb 12.5 L Hct 36.2 L MCV 86.0 MCH 29.7 MCHC 34.5 RDW 14.1 Plt Count 122 L Neut % (Auto) 75.6 H Lymph % (Auto) 15.0 L [place] % (Auto) 6.9 Eos % (Auto) 1.3 L Baso % (Auto) 1.2 Neut # (Auto) 5000 Lymph # (Auto) 1000 L [place] # (Auto) 500 Eos # (Auto) 100 Baso # (Auto) 100 PT INR APTT Sodium 139 Potassium 4.1 Chloride 103 Carbon Dioxide 29 BUN 24 H Creatinine 1.35 H Estimated GFR 53 L BUN/Creatinine Ratio 17.8 Glucose 108 Lactate Calcium 8.3 L Magnesium Total Bilirubin 0.6 AST 22 ALT 12 Alkaline Phosphatase 50 Total Creatine Kinase CK-MB (CK-2) CK-MB (CK-2) Rel Index Troponin I NT-Pro-B Natriuret Pep Total Protein 6.2 L Albumin 3.6 Globulin 2.6 Albumin/Globulin Ratio 1.4 Lipase Procalcitonin TSH Free T4 Nasal Screen MRSA (PCR) Ethyl Alcohol SARS-CoV-2 (PCR) Positive H Influenza A (RT-PCR) Influenza B (RT-PCR) 12/25/21 12/25/21 12/25/21 12:50 12:50 12:50 WBC RBC Hgb Hct MCV MCH MCHC RDW Plt Count Neut % (Auto) Lymph % (Auto) [place] % (Auto) Eos % (Auto) Baso % (Auto) Neut # (Auto) Lymph # (Auto) [place] # (Auto) Eos # (Auto) Baso # (Auto) PT 17.4 H INR 1.5 H APTT 35 Sodium Potassium Chloride Carbon Dioxide BUN Creatinine Estimated GFR BUN/Creatinine Ratio Glucose Lactate 1.3 Calcium Magnesium 1.9 Total Bilirubin AST ALT Alkaline Phosphatase Total Creatine Kinase 31 L CK-MB (CK-2) TNP CK-MB (CK-2) Rel Index TNP Troponin I < 0.012 NT-Pro-B Natriuret Pep Total Protein Albumin Globulin Albumin/Globulin Ratio Lipase 135 Procalcitonin 0.11 TSH Free T4 Nasal Screen MRSA (PCR) Ethyl Alcohol < 10 SARS-CoV-2 (PCR) Influenza A (RT-PCR) Influenza B (RT-PCR) 12/25/21 12/25/21 12/25/21 12:50 12:50 12:55 WBC RBC Hgb Hct MCV MCH MCHC RDW Plt Count Neut % (Auto) Lymph % (Auto) [place] % (Auto) Eos % (Auto) Baso % (Auto) Neut # (Auto) Lymph # (Auto) [place] # (Auto) Eos # (Auto) Baso # (Auto) PT INR APTT Sodium Potassium Chloride Carbon Dioxide BUN Creatinine Estimated GFR BUN/Creatinine Ratio Glucose Lactate Calcium Magnesium Total Bilirubin AST ALT Alkaline Phosphatase Total Creatine Kinase CK-MB (CK-2) CK-MB (CK-2) Rel Index Troponin I NT-Pro-B Natriuret Pep 2100 H Total Protein Albumin Globulin Albumin/Globulin Ratio Lipase Procalcitonin TSH 0.025 L Free T4 1.47 Nasal Screen MRSA (PCR) Ethyl Alcohol SARS-CoV-2 (PCR) Influenza A (RT-PCR) Influenza B (RT-PCR) 12/25/21 12/25/21 12/26/21 16:00 17:00 04:50 WBC 9.8 RBC 4.16 L Hgb 12.3 L Hct 35.3 L MCV 84.8 MCH 29.5 MCHC 34.8 RDW 14.4 Plt Count 115 L Neut % (Auto) 91.8 H Lymph % (Auto) 5.2 L [place] % (Auto) 2.9 L Eos % (Auto) 0.0 L Baso % (Auto) 0.1 Neut # (Auto) 9000 H Lymph # (Auto) 500 L [place] # (Auto) 300 Eos # (Auto) 0 Baso # (Auto) 0 PT INR APTT Sodium Potassium Chloride Carbon Dioxide BUN Creatinine Estimated GFR BUN/Creatinine Ratio Glucose Lactate Calcium Magnesium Total Bilirubin AST ALT Alkaline Phosphatase Total Creatine Kinase CK-MB (CK-2) CK-MB (CK-2) Rel Index Troponin I NT-Pro-B Natriuret Pep Total Protein Albumin Globulin Albumin/Globulin Ratio Lipase Procalcitonin TSH Free T4 Nasal Screen MRSA (PCR) Negative for mrsa Ethyl Alcohol SARS-CoV-2 (PCR) Influenza A (RT-PCR) Flu a negative Influenza B (RT-PCR) Flu b negative 12/26/21 04:50 WBC RBC Hgb Hct MCV MCH MCHC RDW Plt Count Neut % (Auto) Lymph % (Auto) [place] % (Auto) Eos % (Auto) Baso % (Auto) Neut # (Auto) Lymph # (Auto) [place] # (Auto) Eos # (Auto) Baso # (Auto) PT INR APTT Sodium 135 L Potassium 4.6 Chloride 105 Carbon Dioxide 27 BUN 22 H Creatinine 1.16 Estimated GFR > 60 BUN/Creatinine Ratio 19.0 Glucose 203 H Lactate Calcium 7.9 L Magnesium Total Bilirubin 0.4 AST 21 ALT 12 Alkaline Phosphatase 41 Total Creatine Kinase CK-MB (CK-2) CK-MB (CK-2) Rel Index Troponin I NT-Pro-B Natriuret Pep Total Protein 5.4 L Albumin 3.0 L Globulin 2.4 Albumin/Globulin Ratio 1.3 Lipase Procalcitonin TSH Free T4 Nasal Screen MRSA (PCR) Ethyl Alcohol SARS-CoV-2 (PCR) Influenza A (RT-PCR) Influenza B (RT-PCR) 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 Cerumen impaction Chicken pox Chronic kidney disease Complete AV block COPD (chronic obstructive pulmonary disease) H/O benign neoplasm of pituitary gland HTN (hypertension) Hyperlipidemia Hypertrophic cardiomyopathy Hypopituitarism Hypothyroidism senior living current use of anticoagulant therapy (11/19/15) Low testosterone Malignant neoplasm of prostate (01/26/03) Measles Persistent atrial fibrillation (11/19/15) Syncope Surgical History Pacemaker (~2020) Family History Father Hypertension Mother Cancer Social History marital status: household members: spouse lives independently: Yes Smoking Status: Former smoker alcohol intake: current Assessment & Plan Assessment & Plan narrative: 1.? Acute COVID-19 infection -presents with weakness, fever and rigors and O2 desaturations with exertion only, hypotensive prior to ER arrival, no infiltrate on chest x-ray -at this time need supportive therapy with IV fluids, stress dose steroids, but will start remdesivir/high-dose steroids if respiratory status deteriorates -continue NS 100 cc/hour, stopped D5 NS -continue stress dose steroids hydrocortisone 50 mg IV q.6 hours -Tylenol as needed -mobilize out of bed 2. Acute hypoxic respiratory failure -O2 sat 87% recorded by EMS and dropped below 88% with minimal activity in hospital -chest x-ray without infiltrate -currently on room air, provide supplemental O2 as needed 3.? 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 Hypopituitarism -stress dose steroids as above -continue home dose of hydrocortisone 20 mg p.o. daily, levothyroxine 112 mcg daily -TSH suppressed but not reliable since patient has central hypothyroidism, his free T4 is normal indicating adequate replacement 5. Persistent atrial fibrillation -he is in paced rhythm -continue metoprolol ER 25 mg daily -continue Xarelto 20 mg daily although may need to adjust if EGFR less than 50 -telemetry 6. Hypertrophic cardiomyopathy history -BNP elevated but there is no evidence of acute CHF -continue lisinopril 10 mg q.d. and metoprolol succinate 25 mg q.d. as blood pressure allows 7. Acute kidney injury on chronic kidney disease -renal function improved on repeat labs -maintain IV fluid support until confirm patient taking adequate fluids by mouth DVT prophylaxis:? On oral anticoagulant Code status: Full code Time Spent With Patient Critical Care time: I spent a total of [] minutes of critical care time on this patient's care today; this time is exclusive of procedural time. Quality VTE Deep Vein Thrombosis/Pulmonary Embolism Present on Admission: No
[2021-12-26] MEDS: RIVAROXABAN 10 MG TABLET 20 MG PO (11:15)
[2021-12-26] MEDS: HYDROCORTISONE 10 MG TABLET 20 MG PO (11:15)
[2021-12-26] MEDS: METOPROLOL ER 25 MG TABLET PO (11:15)
[2021-12-26] MEDS: lisinopriL 10 MG TABLET PO (11:16)
[2021-12-26] MEDS: SODIUM CHLORIDE 0.9% 1,000 ML 100 ML IV ×2 (11:17→20:38)
--- NOTE | 2021-12-26 13:15 | CM.DANOTE ---
Patient is an 81 yo male who was admitted on 12/25/21 for Weakness. Pt has M[employer] and [employer] for insurance and his PCP is Dr. Sushil Melgar. EMR was reviewed. Per MD, pt with hx of pacemaker, AFIB and COPD and COVID vaccinated and double boosted but admitted for Acute COVID+. Per RN, pt has been able to tolerate room air this morning but very profoundly weak and still requiring COVID tx and on precautions. Spouse to drop off pt's belongings and ipad while admitted and to provide some baseline for pt as he is currently not the best historian. 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 SW called and left ms for spouse and will await her arrival for d/c discussion and needs. PT ordered and pending towards determining recommendations for safe discharge plan. Plan: SW to follow closely for PT eval to determine d/c planning needs and recommendations based on pt progress. TAE Pimentel Discharge Planning/Care Management CM Discharge Assessment Start: 12/26/21 13:13 Freq: Status: Active Protocol: Document 12/26/21 13:13 BF (Rec: 12/26/21 13:14 BF [id number]) Discharge Planning Assessment Assigned Industrial Manufacturing Technician TAE Erickson DPOA/Assigned Designee Name spouse Jana Contact Information [phone] Advance Directives? No Advance Directives on File No History Provided By Patient,Significant Other, Medical Record Has Patient been admitted in last 30 No days? Prior Living Arrangements House Household Members spouse Type of transporation used prior to Relies on Others admit Independent with ADL's Yes Is patient alert and oriented? Yes: somewhat Needs Assistance With Meal Prep,Managing Medications ,Home Chores / Shopping Caregiver for Another No Barriers to Discharge No Comment COVID+ Discharge Plan Home with Home Health Community Services Physical Therapy Transportation Arrangement Spouse plans to transport back to [facility] at d/c Additional Comment Pending PT eval and recommendations as pt seems below baseline with weakness Review Status In Process Please Provide Date Initial DC 12/26/21 Assessment Was Performed Next Review Type Continued Stay Review
[2021-12-26 14:16] LABS: COVID19 -Nasal RAPID POSITIVE (Negative)
--- NOTE | 2021-12-26 14:39 | PT.IIE ---
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 Cerumen impaction Chicken pox Chronic kidney disease Complete AV block COPD (chronic obstructive pulmonary disease) H/O benign neoplasm of pituitary gland HTN (hypertension) Hyperlipidemia Hypertrophic cardiomyopathy Hypopituitarism Hypothyroidism shelter current use of anticoagulant therapy (11/19/15) Low testosterone Malignant neoplasm of prostate (01/26/03) Measles Persistent atrial fibrillation (11/19/15) Syncope Physical Therapy Inpatient Evaluation/Re-Eval M1 PT/OT-IP Prior Functional Status Start: 12/26/21 11:54 Freq: NEEDED Status: Active Protocol: Document 12/26/21 14:39 AW (Rec: 12/26/21 15:04 AW [id number]) Medical Review Prior Functional Status Medical History Reviewed Yes Communication WNL. Pt is an effective verbal communicator. Mobility and Gait Pt reports independent mobility at baseline. He admits he fell from the toilet yesterday prior to admit but denies any other falls history . Activities of Daily Living and IADL's Independent per pt report Social History Household Members spouse Living Arrangements House Number of Floors (Floors) One Floor Number of Stairs To Enter/Railing? Level entrance, no stairs Home Environment High Toilet,Walk in Shower Home Equipment Straight Cane,Grab Bars In Shower Employment Status Retired Additional Social History Comment Pt believes he may have a walker at home but he recently sold his house and moved into a short term rental so would not likely be able to find it. 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 Spouse is in good health and able to provide assist. M2 PT-IP Current Condition Start: 12/26/21 11:54 Freq: NEEDED Status: Active Protocol: Document 12/26/21 14:39 AW (Rec: 12/26/21 15:04 AW [id number]) Physical Therapy Current Condition Current Condition Evaluation Date 12/26/21 Treatment Diagnosis covid (+); acute respiratory failure; general weakness; impaired mobility Onset Date 12/24/21 M3 PT-IP Subjective Start: 12/26/21 11:54 Freq: NEEDED Status: Active Protocol: Document 12/26/21 14:39 AW (Rec: 12/26/21 15:04 AW [id number]) Subjective Physical Therapy Visit Type Type Initial Evaluation Visit Start Time 14:13 Visit Stop Time 14:39 Total Visit Minutes 26 Number of HEART NURSE Visits 0 Physical Therapy Visit Comments Patient Comments I still don't know if I have COVID. Do I have COVID? Therapy Pain Assessment Pain When Pain Assessed During Mobility Pain Present Pain Present Denied Pain M4 PT-IP Mobility and Gait Start: 12/26/21 11:54 Freq: NEEDED Status: Active Protocol: Document 12/26/21 14:39 AW (Rec: 12/26/21 15:18 AW [id number]) PT-Bed Mobility Assessment Supine to Sit Supine to Sit Minimal Assistance,1 Person Assistance Sit to Supine Sit to Supine Standby Assistance Scooting Scooting to Edge of Bed Standby Assistance PT-Transfer Assessment Sit to and From Stand Sit to and from Stand Contact Guard Assistance,1 Person Assistance,Use of Upper Extremities Equipment Transfer Assistive Device None,Gait Belt,Front Wheeled Walker Orthotic/Prosthetic Devices or Brace: No Transfers Transfer Destination Bed,Chair Transfer Technique pt ambulated with and without FWW Transfer Ability Level of Assist Standby Assistance Comments Mobility Comments Pt was lying in bed as PT arrived. BP 154/67 HR 61 SpO2 100% at rest on room air. He had a wet cough that worsened with activity. Pt struggled to complete supine to sit, attempted to use momentum, but ultimately needed min assist to sit up EOB. He sat without external support and SpO2 was stable. He stood CGA and used FWW to ambulate 30 feet in the room with continuous pulse oximetry. SpO2 dropped to 86% during ambulation but recovered to 95% within 1 minute of sitting down. Pt agreed to ambulate without AD as he states he does at home. He stood CGA and ambulated 20 feet, maintaining near- constant contact with dickson, sink, foot of bed. SpO2 dropped again to mid-80's and recovered with seated rest in less than one minute. Pt stood and used FWW to transfer back to bed CGA. He was left with call light and all needs in reach. Gait Assessment Gait Gait Assistance Required: Standby Assistance,Contact Guard Assist Distance (Feet) 30 Assistive Devices Assistive Device None,Gait Belt,Front Wheeled Walker Orthotic/Prosthetic Devices or Brace: No Gait Deviations General Gait Pattern Decreased Stride Length, Decreased Feet Clearance,Wide Based Gait Factors Limiting Gait Function Factors Limiting Gait Function Decreased Activity Tolerance, Decreased Strength,Poor Balance,Poor Safety Awareness, Respiratory Distress Comments Gait Comments See mobility comments for details. Stair Climbing Assessment Comments Stair Climbing Comments Not assessed. No stairs at home. PT-Balance Assessment Sitting Balance and Reactions Static Sitting Balance Ability Good Dynamic Sitting Balance Ability Good Standing Balance and Reactions Static Standing Balance Ability Fair Dynamic Standing Balance Ability Fair Device Used FWW M5 PT-IP Objective Assessments Start: 12/26/21 11:54 Freq: NEEDED Status: Active Protocol: Document 12/26/21 14:39 AW (Rec: 12/26/21 15:18 AW [id number]) Orientation Orientation/Cognition Level of Alertness Alert Orientation Name,Month,Place,Situation Language Function Ability No Deficits Noted Safety Awareness Decreased Safety Awareness Gross Range of Motion Lower Extremity ROM Assessment Within Functional Limits Strength Lower Extremity Strength Assessment Bilaterally Impaired Hip 4/5 Knee 4/5 extension; 4-/5 flexion Ankle 4-/5 DF Sensation Assessment Sensation Gross Sensation WNL M6 PT-IP Treatment Start: 12/26/21 11:54 Freq: NEEDED Status: Active Protocol: Document 12/26/21 14:39 AW (Rec: 12/26/21 15:18 AW [id number]) Physical Therapy Treatment Education Education Provided Safety M7 PT-IP Assessment and Plan Start: 12/26/21 11:54 Freq: NEEDED Status: Active Protocol: Document 12/26/21 14:39 AW (Rec: 12/26/21 15:18 AW [id number]) PT Summary Assessment and Plan Potential Rehabilitation Potential Good Status of Condition at Evaluation Evolving Summary Impairments Strength,Balance,Bed Mobility, Transfers,Gait,Activity Tolerance Assessment Summary Satish is an 81 yo man admitted with acute respiratory failure secondary to COVID infection. He reports independent mobility at baseline. He presents with BLE weakness and exertional hypoxia affecting mobility. He was safest with FWW. Without AD, he tended to reach for dickson and surfaces to steady himself and BARON widened. Pt would benefit from continued acute PT to progress his strength, activity tolerance, and gait. He has his at home to provide assist. Pt will likely be safe to discharge home with assist and may benefit from home health PT. Goals Bed Mobility Goal Independent Transfer Goal Independent,Front Wheeled Walker Gait Goal Independent,Front Wheel Walker Gait Distance 100 Other Goals - improve transfers and gait to IND without AD Days to Meet Goals 5 Frequency of Treatment Frequency Of Treatment Once a Day Treatment Plan Physical Therapy Treatment Plan Bed Mobility Training,Transfer Training,Gait Training, Therapeutic Exercise,Balance Retraining,Discharge Planning, Neuromuscular Re-ed Other Recommendations and Next Treatment monitor SpO2 during activity; Focus gait training with FWW Precautions Other Precautions covid (+) Recommendations To Nursing Amount of Assist Needed 1 Person Assist Discharge Recommendations PT Discharge Recommendations Home with Assistance,Home Health Equipment Needed for Home Before may need FWW Discharge Transportation Needs at Discharge Private Vehicle
[2021-12-26] MEDS: guaiFENesin ER 600 MG TAB PO ×2 (16:07→20:39)
--- NOTE | 2021-12-26 17:45 | PC.NURSE ---
PT INTERMITTENTLY CANTANKEROUS AND FORGETFUL, LUNGS BASES CLEAR BUT NOTED TO HAVE UPPER AIRWAY/BRONCHIAL NOISE- ENCOURAGED COUGH AND DEEP BREATHING, ALSO INITIATED PO MUCINEX AND THIS SEEMS TO HAVE IMPROVED OVER COURSE OVER THIS DAY- MOIST PRODUCTIVE COUGH BUT HE SWALLOWS SPUTUM. NO NOTED EDEMA AND ROOM AIR SPO2 97-100% - PT IN DENIAL RE: COVID +, RESWABBED PER HIS PERSISTENT REQUEST- ALSO NEW INCONTINENCE NOTED- BOTH BOWEL AND BLADDER THIS SHIFT, SALINE LOCKED AND DENYING PAIN AT THIS TIME, TELE REMAINS MOSTLY A-PACED WITH UNDERLYING AFIB- HE REMAINS WEAK AND REQUIRES ASSIST OF ONE FOR MOBILITY NEEDS
[2021-12-26] MEDS: ATORVASTATIN 20 MG TABLET 10 MG PO (20:39)
--- NOTE | 2021-12-26 23:10 | DI.RAD.S_ITS ---
PROCEDURE: XR CHEST 1V INDICATIONS: covid +. orthopnea TECHNIQUE: One view of the chest was acquired. COMPARISON: [facility], CR, XR CHEST 1V, 12/25/2021, 13:03. FINDINGS: Surgical changes and devices: Left chest wall dual lead pacemaker and leads appear similar in position. Lungs and pleura: Lungs are clear. No pleural effusions or pneumothorax. Mediastinum: Mediastinal contours appear normal. Heart size is normal. Bones and chest wall: No suspicious bony lesions. Overlying soft tissues appear unremarkable. IMPRESSION: 1. No acute cardiopulmonary disease. Dictated by: Rickey Buck M.D. on 12/27/2021 at 0:27 Approved by: Rickey Buck M.D. on 12/27/2021 at 0:28
--- NOTE | 2021-12-26 23:21 | PC.NURSE ---
Addendum entered by Coco Reid R.N. 12/27/21 07:25: End of shift note: Care of patient from [id number]. AAOX3, denies pain, Patient only had the one event of Vtac, O2 Sats 98% on 1L, 100% Atrial paced 60s most of the night. Incontinent of urine, using pullup briefs, urinal is at bedside. Original Note: Patient having runs of VTac, is Atrial paced 80s, on RA O2 Sats 88%, changed to 4L NC O2 Sats 94%. Patient states he feels anxious. HOB found at 20. Boosted patient up in bed, HOB 45%. Patient states it is easier to breath. Crackles heard over posterior lower lobes, patient has a moist productive clear mucus cough, has orthopnea. Called ROLAN Mcleod, informed of assessment, MIV fluid d/c, CXR done.
[2021-12-27] VITALS (7 sets, daily range): BP systolic 158–164; BP diastolic 70–94; PULSE 62–70; RESP 18–26; TEMP 36.5–36.8; O2SAT 99–100
[2021-12-27] MEDS: HYDROCORTISONE 100 MG/2 ML VIAL 50 MG IV ×3 (02:04→12:24)
[2021-12-27 05:15] LABS: Add Manual Diff / Slide Review NO; Basophils Absolute Auto 0 /uL (0-100); Basophils Percent Auto 0.1 % (0-2); Eosinophils Absolute Auto 0 /uL (0-450); Hemoglobin 11.7 g/dL (13.5-17.5); Lymphocytes Absolute Auto 700 /uL (1100-4500); Lymphocytes Percent Auto 5.8 % (25-40); Mean Corpuscular HGB Conc 34.4 % (30-36); Mean Corpuscular Hemoglobin 29.4 PG (26-34); Mean Corpuscular Volume 85.7 fL (80-100); Monocytes Absolute Auto 300 /uL (0-900); Monocytes Percent Auto 2.7 % (3-14); Neutrophils Absolute Auto 10700 /uL (1500-7000); Neutrophils Percent Auto 91.4 % (50-75); Platelet Count 118 X10^3/uL (150-400); Red Blood Cell Count 3.97 X10^6/uL (4.5-5.9); Red Cell Distribution Width 14.4 % (11.6-14.8); White Blood Cell Count 11.7 X10^3/uL (4.5-11.0)
[2021-12-27 05:22] LABS: BUN Creatinine Ratio 22.5 (6-22); Blood Urea Nitrogen 25 mg/dL (9-20); Calcium 8.1 mg/dL (8.4-10.2); Carbon Dioxide 25 mmol/L (22-32); Chloride 108 mmol/L (98-107); Estimated Glomerular Filt Rate > 60 mL/min (>60); Glucose 123 mg/dL (80-110); HEMOLYSIS < 15 (0-50); Potassium 4.2 mmol/L (3.4-5.1); Sodium 137 mmol/L (137-145)
[2021-12-27] MEDS: LEVOTHYROXINE 112 MCG TABLET PO (06:57)
[2021-12-27] MEDS: RIVAROXABAN 10 MG TABLET 20 MG PO (08:47)
[2021-12-27] MEDS: lisinopriL 10 MG TABLET PO (08:47)
[2021-12-27] MEDS: guaiFENesin ER 600 MG TAB PO (08:47)
[2021-12-27] MEDS: METOPROLOL ER 25 MG TABLET PO (08:48)
[2021-12-27] MEDS: HYDROCORTISONE 10 MG TABLET 20 MG PO (08:49)
--- NOTE | 2021-12-27 10:13 | P.DS_ITS ---
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 At the time I see patient he is having active rigors and has hard time giving me full history.? He apparently became acutely weak while sitting on the toilet and fell to the floor.? He denies passing out.? He was too weak to get up but eventually got back to his bed.? Upon EMS arrival they found him to be hypotensive in the lying position and also hypoglycemic with blood sugar in the 60s.? He was given sugar and repeat blood sugar was 99.? On ER arrival his blood pressure was 146/67, pulse 64, respirations 18 with O2 sat 100% on room air.? However when they stood him up he became lightheaded with O2 sat dropping to 87% room air.? Noted similar drop in O2 sat when he was being situated in bed up on the hospital floor.? Subsequently spiked temp to 102.3 with active rigors once arrived to the floor.? His COVID PCR was positive.? BNP 2100.? Creatinine 1.35 at baseline.? Chest x-ray did not show infiltrate.? EKG showed paced rhythm.? Patient has hypopituitarism and on steroid and thyroid replacement.? He appears to be on Xarelto for AFib anticoagulation.? Patient is fully immunized including 2 boosters. Discharge Providers Provider Date of admission: 12/25/21 14:40 Discharge Date: 12/27/21 Primary care physician: Sushil Melgar DO Consults: 12/25/21 18:04 Consult to Dietitian, Adult Routine Comment: Reason For Exam: assessed at high risk, low appetite. 12/26/21 10:17 Consult to Physical Therapy Evaluate & Treat Comment: Physician Instructions: Evaluate and Treat Discharge provider: Elroy Li MD Summary Hospital Course Discharge Diagnosis: 1. Acute COVID infection 2. Acute hypoxemic respiratory failure 3. Hypoglycemia 4. Hypopituitarism 5. Persistent afib 6. MADELINE on CKD Hospital Course: Mr. Deal was admitted with respiratory distress, he did have transient hypoxemia with exertion. His oxygen improved at rest. COVID test was positive. He improved in the hospital. He had knonw hypopit, and his blood pressure was initially on the low side, but he was given a burst of stress dose steroids, and on discharge felt much improved and was placed back o regular dose of steroids. He is encouraged to remain isolated as much as able for the next week. Exam Vital Signs (past 8 hours): Fraction of Inspired Oxygen 28 Oxygen Delivery Method Room Air Oxygen Flow Rate 2 Narrative Exam Narrative: General:? no acute distress Lungs:? Clear bilaterally Extremities:? No edema Neuro:?no focal deficits Objective Labs Result Diagrams: 12/27/21 04:45 12/27/21 04:45 Labs: Laboratory Results - last 24 hr 12/27/21 12/27/21 04:45 04:45 WBC 11.7 H RBC 3.97 L Hgb 11.7 L Hct 34.0 L MCV 85.7 MCH 29.4 MCHC 34.4 RDW 14.4 Plt Count 118 L Neut % (Auto) 91.4 H Lymph % (Auto) 5.8 L Linn % (Auto) 2.7 L Eos % (Auto) 0.0 L Baso % (Auto) 0.1 Neut # (Auto) 34714 H Lymph # (Auto) 700 L Linn # (Auto) 300 Eos # (Auto) 0 Baso # (Auto) 0 Sodium 137 Potassium 4.2 Chloride 108 H Carbon Dioxide 25 BUN 25 H Creatinine 1.11 Estimated GFR > 60 BUN/Creatinine Ratio 22.5 H Glucose 123 H Calcium 8.1 L PFSH Medical History 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 Cerumen impaction Chicken pox Chronic kidney disease Complete AV block COPD (chronic obstructive pulmonary disease) H/O benign neoplasm of pituitary gland HTN (hypertension) Hyperlipidemia Hypertrophic cardiomyopathy Hypopituitarism Hypothyroidism [facility] current use of anticoagulant therapy (11/19/15) Low testosterone Malignant neoplasm of prostate (01/26/03) Measles Persistent atrial fibrillation (11/19/15) Syncope Surgical History Pacemaker (~2020) Family History Father Hypertension Mother Cancer Social History marital status: household members: spouse lives independently: Yes Smoking Status: Former smoker alcohol intake: current Discharge Plan Discharge Plan Patient Disposition: Home Provider Discharge Comment: Mr. Deal was admitted with cough and shortness of breath due to COVID infection. He improved during his hospital stay. On day of discharge he was not requiring oxygen. He should isolate as much as possible for the next week. Discharge orders & Medications Prescriptions: Continued levothyroxine 112 mcg tablet 112 mcg PO DAILY Qty: 90 1RF metoprolol succinate 25 mg tablet extended release 24 hr 25 mg PO DAILY 0RF Xarelto 20 mg tablet 20 mg PO DAILY 0RF atorvastatin 80 mg Tablet 80 mg PO BEDTIME 0RF hydrocortisone 20 mg tablet 20 mg PO DAILY 0RF lisinopril 10 mg tablet 10 mg PO DAILY 0RF Follow up/Referrals: Sushil Melgar DO [Primary Care Provider] - Diet/Activity/Treatments Diet: Regular Discharge Data Primary Care Provider: Sushil Melgar Quality VTE Deep Vein Thrombosis/Pulmonary Embolism Present on Admission: No
--- NOTE | 2021-12-27 14:06 | CM.DPC ---
DCP Discharge Home Per MD, pt is tolerating room air and has voided independently and medically stable to discharge home today with no identified barriers to discharge. Per RN, pt has ambulated safely to the bathroom and no d/c concerns but pt initially stated he did not have a ride back home to [facility] as his has tested positive for COVID and [place] SW updated that currently no taxi or transport available that takes COVID+ patients and BLS transport would be out of pocket expense and insurance would likely not cover cost of pt remaining in the hospital as he has discharge orders. Then spouse called and stated she has no COVID symptoms and already has reservation for the ferry to come transport pt and no concerns. Plan: Patient to d/c home today via spouse POV and outpt follow up and no SW needs at this time. TAE Pimentel
--- NOTE | 2021-12-27 14:15 | PC.NURSE ---
Patient discharged home, no new rx. A/Ox4, on RA at time of discharge. IVs removed, tele removed. Patient had no concerns or questions about discharge.
== END 2021-12-27 14:19 | disposition home or self-care (01) | DRG 177 ==
LOC: ED 14:30 → ICU 12-26 08:08 → AC 12-30 10:28
PROVIDERS: Admitting Provider Internal Medicine; Emergency Provider Emergency Medicine; Family Provider Family Medicine; PCP Family Medicine; Referring Provider Emergency Medicine; Visit Provider Internal Medicine
DX: U07.1 COVID-19 (principal); J96.01 Acute respiratory failure with hypoxia; I48.19 Other persistent atrial fibrillation; I42.2 Other hypertrophic cardiomyopathy; I44.2 Atrioventricular block, complete; E23.0 Hypopituitarism; N17.9 Acute kidney failure, unspecified; E03.9 Hypothyroidism, unspecified; E78.5 Hyperlipidemia, unspecified; I12.9 Hypertensive chronic kidney disease with stage 1 through stage 4 chronic kidney disease, or unspecified chronic kidney disease; N18.9 Chronic kidney disease, unspecified; Z95.0 Presence of cardiac pacemaker; Z79.01 Long term (current) use of anticoagulants; Z87.891 Personal history of nicotine dependence
CPT/HCPCS: 36415; 71045; 80048; 80053; 80320; 82550; 82962; 83605; 83690; 83735; 83880; 84145; 84439; 84443; 84484; 85025; 85610; 85730; 87502; 87635; 87797; 93005; 93010; 94762; 97162; 99283; 99284; C9803; J1720

== ENCOUNTER → 2022-02-02 10:17 | Outpatient (CLI) | payer MEDICARE, SELFPAY ==
[2021-12-25 17:54] VITALS: BMI 25.2
[2022-02-06 20:10] LABS: Hematocrit 35.8 % (41-53); Mean Corpuscular HGB Conc 33.6 % (30-36); Mean Corpuscular Hemoglobin 29.3 PG (26-34); Mean Corpuscular Volume 87.1 fL (80-100); Platelet Count 123 X10^3/uL (150-400); Red Blood Cell Count 4.11 X10^6/uL (4.5-5.9); Red Cell Distribution Width 14.1 % (11.6-14.8)
[2022-02-06 20:43] LABS: Add Manual Diff / Slide Review YES
== END ==
PROVIDERS: Family Provider Family Medicine; PCP Family Medicine; Visit Provider Physician Assistant
DX: R05.3 Chronic cough (principal)
CPT/HCPCS: 85025

== ENCOUNTER → 2022-04-12 13:11 | Outpatient (CLI) | payer MEDICARE, SELFPAY ==
[2021-12-25 17:54] VITALS: BMI 25.2
[2022-04-12 20:56] LABS: Add Manual Diff / Slide Review NO; Basophils Absolute Auto 0 /uL (0-100); Basophils Percent Auto 0.4 % (0-2); Eosinophils Absolute Auto 100 /uL (0-450); Eosinophils Percent Auto 1.1 % (2-4); Hemoglobin 12.4 g/dL (13.5-17.5); Lymphocytes Absolute Auto 1000 /uL (1100-4500); Lymphocytes Percent Auto 13.4 % (25-40); Mean Corpuscular HGB Conc 34.4 % (30-36); Mean Corpuscular Hemoglobin 29.2 PG (26-34); Mean Corpuscular Volume 84.7 fL (80-100); Monocytes Absolute Auto 200 /uL (0-900); Neutrophils Absolute Auto 5900 /uL (1500-7000); Neutrophils Percent Auto 82.1 % (50-75); Platelet Count 175 X10^3/uL (150-400); Red Blood Cell Count 4.25 X10^6/uL (4.5-5.9); Red Cell Distribution Width 14.2 % (11.6-14.8); White Blood Cell Count 7.2 X10^3/uL (4.5-11.0)
[2022-04-12 21:24] LABS: Alanine Aminotransferase 10 IU/L (<50); Albumin 3.8 g/dL (3.5-5.0); Albumin Globulin Ratio 1.5 (1.0-2.8); Alkaline Phosphatase 59 U/L (38-126); Aspartate Aminotransferase 26 IU/L (17-59); BUN Creatinine Ratio 19.1 (6-22); Bilirubin Total 0.3 mg/dL (0.2-1.3); Blood Urea Nitrogen 29 mg/dL (9-20); Calcium 8.9 mg/dL (8.4-10.2); Carbon Dioxide 29 mmol/L (22-32); Chloride 104 mmol/L (98-107); Creatine Kinase 33 U/L (55-170); Estimated Glomerular Filt Rate 45 mL/min (>60); Globulin 2.6 g/dL (1.7-4.1); Glucose 131 mg/dL (80-110); HEMOLYSIS < 15 (0-50); Potassium 4.5 mmol/L (3.4-5.1); Sodium 139 mmol/L (137-145); Total Protein 6.4 g/dL (6.3-8.2)
[2022-04-12 21:31] LABS: Troponin I < 0.012 ng/mL (0.01-0.034)
[2022-04-12 21:49] LABS: TSH w/ Reflex to FT4 0.02 uIU/mL (0.47-4.68)
[2022-04-12 21:54] LABS: Ferritin 507 ng/mL (18-464)
[2022-04-12 22:30] LABS: Free T4, Direct Thyroxine 1.95 ng/dL (0.78-2.19)
== END ==
PROVIDERS: Family Provider Family Medicine; PCP Family Medicine; Visit Provider Physician Assistant
DX: E03.9 Hypothyroidism, unspecified (principal); D64.9 Anemia, unspecified; I10 Essential (primary) hypertension; N18.2 Chronic kidney disease, stage 2 (mild); R42 Dizziness and giddiness; R53.1 Weakness; R53.83 Other fatigue
CPT/HCPCS: 80053; 82550; 82728; 84439; 84443; 84484; 85025